=== PATIENT | female | born 1930 | race Caucasian/White ===

== ENCOUNTER 2018-02-12 18:17 | Inpatient (IN) | payer OTHER ==
[~2018-02-12] VITALS: Ht 144.7 cm; Wt 85.0 kg
--- NOTE | ~2018-02-12 | PR ---
[place], [place] PROGRESS NOTE NAME: JOSETTE VANN UNIT #: [id number] ROOM: 312 DOCTOR: CORINNE BAUER DO BIRTHDATE: [birth year] DOS: 02/16/2018 CHIEF COMPLAINT: Slept pretty good. SUMMARY OF VISIT: The patient was interviewed in the dining arriaza after she had completed in her breakfast. She engaged in a pleasant conversation and said that there are worse something on her tray that she could not eat. Her responses seemed to be simple and short. She denied having any issues or complaints and asked when she would be able to leave and go home. Mental status, she remains alert and oriented to self and place but not the time. Mood seems to be trending towards euthymia. Affect is more appropriate without signs of ryan or hypomania. No gross psychotic symptoms noted. Short-term memory remains poor. PLAN: We will continue to increase her Namenda to 10 mg b.i.d. to maximize potential benefits as her GFR is only mildly low. We will monitor with possible plans to increase her Exelon patch as needed to maximize its potential benefits. We will continue to engage patient in individual and group activities. We will plan to return to safe, to the least restrictive environment when psychiatrically stable. CORINNE BAUER DO JC CERVANTES MD CM:LUISITO [id number] CORINNE BAUER DO 02/18/18 1043 interface
--- NOTE | ~2018-02-12 | WRIGHTHP ---
[place], [place] PATIENT HISTORY AND PHYSICAL EXAM NAME: JOSETTE VANN UNIT #: [id number] ROOM: 312 DOCTOR: JC CERVANTES MD BIRTHDATE: [birth year] DOS: 02/12/2018 CHIEF COMPLAINT: "I don't know why I am here, I hope I get to go soon." HISTORY OF PRESENT ILLNESS: This is an 87-year-old white female who resides at [facility]. The patient has become increasingly more psychotic and paranoid. The patient believes that she sees small babies living in tents outside of her room at the [facility]. She has also been yelling out for her son who has been for some time. She has been increasingly more paranoid and delusional and believes that strings are hanging out of her nose and out of her ears. When attempted to be supported and redirection, she did escalate to the point of becoming verbally and physically threatening. She is admitted now to rule out any organic factors, to attempt to restabilize on medication, returning to the least restrictive environment when psychiatrically stable. PAST MEDICAL HISTORY: Remarkable for COPD, atrial fibrillation, dementia, depression, hyperlipidemia, hypertension, hypothyroidism, macular degeneration, obesity, osteopenia and venous insufficiency. MENTAL STATUS: The patient is alert and oriented to person, place and that she knows she is in the hospital, but not where and not to time. Mood does seem to be rather depressed and affect is constricted. She lacks significant spontaneity and her responses tended to be very short and simple. There was no agitation directed towards me. She is very confused, however, and could not tell me how long she has been here nor could she even remember what she just ate for breakfast. DIAGNOSES: Major depression, recurrent with psychotic features and Alzheimer's dementia. PLAN: I have already started her on Remeron 15 mg at bedtime along with Invega 3 mg in the morning. Given the fact that there is significant cognitive issues at play here, I will start Exelon patch 4.6 mg a day and Namenda 5 mg at bedtime. We will engage in individual and vega milieu activity, returning to the least restrictive environment when psychiatrically stable. [place], [place] PATIENT HISTORY AND PHYSICAL EXAM NAME: JOSETTE VANN UNIT #: [id number] ROOM: [facility] DOCTOR: JC CERVANTES MD BIRTHDATE: [birth year] JC CERVANTES MD CM:HISPHYS:PATIENT HISTORY AND PHYSICAL EXAMINATION [id number] JC CERVANTES MD 02/13/18 1552 interface
--- NOTE | ~2018-02-12 | DS ---
[place], [place] DISCHARGE SUMMARY [id number] UNIT #: [id number] ROOM: 312 DOCTOR: JC CERVANTES MD BIRTHDATE: [birth year] DOS: 02/19/2018 CHIEF COMPLAINT: "I don't know why I am here, I hope I get to go home soon." HISTORY OF PRESENT ILLNESS: This is an 87-year-old white female who resides at [facility] in [place], [place]. The patient had become increasingly more psychotic and paranoid there with significant verbal and physical agitation and aggression. The patient had reported that she was seeing things and saw small babies living in tents outside of her room. The patient had been yelling for her son who has been for some time. She has been increasingly more paranoid and delusional and believes that strings are hanging out of her nose and her ears when there is nothing there. Attempts to support and redirect her have only led to her escalating further and becoming even more verbally and physically aggressive. The patient is admitted now to rule out any organic factors to attempt to stabilize on medication, engaging in individual and vega milieu activity with the plan to return to the least restrictive environment when psychiatrically stable. PAST MEDICAL HISTORY: Remarkable for COPD, atrial fibrillation, dementia, depression, hyperlipidemia, hypertension, hypothyroidism, macular degeneration, obesity, osteopenia and venous insufficiency. SUMMARY OF HOSPITAL COURSE: The patient was admitted to the unit where she was started on Remeron 15 mg at bedtime as an antidepressant to aid sleep and improve appetite. Additionally to break the psychotic symptoms that she was experiencing, she was started on Invega 3 mg in the morning. Because there was significant cognitive impairment, she was started on both Exelon patch 4.6 mg a day and Namenda 5 mg a day. Both of these drugs were gradually increased to their maximum dose, so the Exelon was brought up from 4.6 mg daily to 9.5 mg daily and ultimately stabilized on 13.3 mg a day. Namenda was gradually titrated up from the 5 mg a day dose to 10 mg twice daily. With this combination of medications, the patient gradually improved. She became much more compliant and much more able to interact appropriately. She no longer was voicing the paranoia or the delusions and was no longer experiencing the visual hallucinations that were so prominent upon admission. The patient tolerated the medicines well and noticed that it did improve her sleep. She was not somnolent or sedate in any way during the day. There were no extrapyramidal symptoms, tardive dyskinesia or any other side effects. The patient had improved sufficiently with this combination of medications that she was able to return back to [facility] where I will follow her upon her return. FINAL DIAGNOSIS UPON DISCHARGE: Major depression, recurrent with psychotic features. PLAN: The patient will be discharged back to [facility]. All of her prescriptions have been printed and will be sent with her. I will follow her upon her return there. Medically and psychiatrically, she is stable. Her biopsychosocial needs will be met by the facility. [place], [place] DISCHARGE SUMMARY NAME: JOSETTE VANN UNIT #: [id number] ROOM: [facility] DOCTOR: JC CERVANTES MD BIRTHDATE: [birth year] JC CERVANTES MD CM:MARJORIE [phone] JC CERVANTES MD 02/19/18 2248 interface
--- NOTE | ~2018-02-12 | PR ---
[place], [place] PROGRESS NOTE NAME: JOSETTE VANN UNIT #: [id number] ROOM: 312 DOCTOR: JC CERVANTES MD BIRTHDATE: [birth year] DOS: 02/14/2018 CHIEF COMPLAINT: "I hope I get to go home soon." SUMMARY OF THE VISIT: The patient was interviewed as she sat in her room. She was sitting on the bed and engaged readily in conversation. She reports no problems, stating that she slept well, is eating well. She tended to minimize her issues. She could not tell me why she was here or how long she had been there. MENTAL STATUS: She remains alert and oriented to person, place, not necessarily time. Mood does seem to be starting to trend towards euthymia. Affect is more appropriate. There is no ryan or hypomania. There are no gross psychotic symptoms. Short term memory has gaps, otherwise she is fairly well intact. PLAN: I will increase Exelon patch and Namenda simultaneously, bringing Exelon patch from 4.6 to 9.5 mg a day and Namenda from 5 mg a day to 5 mg b.i.d., attempting to maximize potential benefits in improving and maintaining ADLs, behavior and cognition. We will engage in individual and vega milieu activity, returning to the least restrictive environment when psychiatrically stable. JC CERVANTES MD CM:PNTRANS [id number] JC CERVANTES MD 02/14/18 1327 interface
--- NOTE | ~2018-02-12 | EKG ---
[place], [place] ELECTROCARDIOGRAM REPORT NAME: JOSETTE VANN UNIT #: [id number] ROOM: 312 DOCTOR: JOSE FRANCISCO ANDREWS,MARILYN BIRTHDATE: [birth year] DOS: 02/12/2018 TIME: 1837 hours IMPRESSION: 1. Atrial fibrillation with controlled ventricular rate. 2. Nonspecific ST-T changes. 3. Normal QT interval. 4. Baseline artifacts. MARILYN FELTON MD CM:EKGRPT:ELECTROCARDIOGRAM REPORT [phone] MARILYN FELTON MD
--- NOTE | ~2018-02-12 | PR ---
[place], [place] PROGRESS NOTE NAME: JOSETTE VANN UNIT #: [id number] ROOM: 312 DOCTOR: JC CERVANTES MD BIRTHDATE: [birth year] DOS: 02/15/2018 CHIEF COMPLAINT: "Good morning, do I get to go home soon. Thank you for breakfast." SUMMARY OF THE VISIT: The patient was interviewed as she was completing her breakfast in the dining area. She had most of her breakfast eaten by the time I engaged her in conversation. She stopped and engaged in pleasant conversation with me. Most of her responses tended to be short and simple but to the point. She denied having any issues. She is not quite certain why she is here and was rather perplexed and bewildered by that. She was asking repeatedly when she would leave here and be able to go home. MENTAL STATUS: She remains alert and oriented to self, place, in that she knows she is in the hospital, but not to time. Mood does seem to be trending towards euthymia. Affect is more appropriate. There is no ryan or hypomania. There are no gross psychotic symptoms noted. Short term memory remains poor and she does at times process information very slowly. PLAN: I will go ahead and continue to increase her Namenda, bringing it from 5 mg twice a day to 10 mg in the morning and 5 mg at bedtime. Her GFR is only mildly low at 55, so I do believe she can handle this dose. I will plan to increase the Exelon patch next trying to maximize its potential benefits. Continue to engage in individual and vega milieu activity with the plan to return to the least restrictive environment when psychiatrically stable. JC CERVANTES MD CM:PNTRANS [id number] JC CERVANTES MD 02/15/18 1702 interface
--- NOTE | ~2018-02-12 | PR ---
[place], [place] PROGRESS NOTE NAME: JOSETTE VANN UNIT #: [id number] ROOM: 312 DOCTOR: CORINNE BAUER DO BIRTHDATE: [birth year] DOS: 02/18/2018 CHIEF COMPLAINT: "When am I getting out of here." SUMMARY OF VISIT: The patient was interviewed in the dining arriaza while she was eating her breakfast. Her responses seem to be simple and short. She denied having any issues or complaints, and she asked when she could leave or go home. Mood seems to be euthymic. Her affect is more appropriate. She does not have any signs of hypomania or ryan. No gross psychotic symptoms, visual or auditory hallucinations. Short-term memory remains poor. PLAN: We will continue her current medications at this time and monitor the patient. We will plan for discharge tomorrow as she continues her progress. We will continue to engage the patient in individual and group activities when she is psychiatrically stable and it is safe to return. CORINNE BAUER DO JC CERVANTES MD CM:PNFLOR [phone] CORINNE BAUER DO 02/25/18 0918 interface
--- NOTE | ~2018-02-12 | PR ---
[place], [place] PROGRESS NOTE NAME: JOSETTE VANN UNIT #: [id number] ROOM: 312 DOCTOR: CORINNE BAUER DO BIRTHDATE: [birth year] DOS: 02/17/2018 CHIEF COMPLAINT: "I do not want them seeing the meds that I am taking." SUMMARY OF VISIT: The patient was interviewed in the dining room while she was eating breakfast. She states that she is concerned about her medication and does not want the other patients in the facility to see her while she takes her meds. She was verified by staff and she was willing to take her medications in her room. She states that she is not a big eater, but she was eating well. States that she slept fine. She does complain of some left-sided back pain and states that it helps her when she gets up to walk. According to the staff, she is in groups, but she is not actively talking or participating; however, she has no behaviors or outburst. MENTAL STATUS: She remains alert and oriented to self, place. Mood seemed to be trending towards euthymia. Affect is more appropriate. There is no ryan or hypomania. No gross psychotic symptoms noted. Short-term memory remains poor and she does, at times, assess information very slowly. PLAN: We will increase her Exelon patch to 13.3 mg daily. We will continue her other medications at this time in order to maximize the potential benefits. Will continue to engage in individual and group activities with the plan to return to the least restrictive environment when psychiatrically stable. CORINNE BAUER, DO JC CERVANTES MD CM:PNFLOR [phone] CORINNE BAUER DO 02/18/18 1043 interface
[2018-02-12 18:17] VITALS: BP 104/62
[2018-02-12] MEDS ORDERED: VITAMIN B COMP1 EAC1 PO (18:22)
[2018-02-12] MEDS ORDERED: CRESTOR10 M1 PO (18:23)
[2018-02-12] MEDS ORDERED: LOSARTAN-HCTZ1 EACH PO (18:23)
[2018-02-12] MEDS ORDERED: MONTELUKAST SOD10 MG PO (18:23)
[2018-02-12] MEDS ORDERED: POTASSIUM CHLO20 ME3 PO (18:24)
[2018-02-12] MEDS ORDERED: OMEPRAZOLE40 MG PO (18:27)
[2018-02-12] MEDS ORDERED: FUROSEMIDE40 MG PO (18:28)
[2018-02-12] MEDS ORDERED: FEROSUL325 MG PO (18:32)
[2018-02-12] MEDS ORDERED: FLOVENT DISKUS50 MCG INH (18:33)
[2018-02-12] MEDS ORDERED: LEVOTHYROXINE50 MCG PO (18:33)
[2018-02-12] MEDS ORDERED: RIVASTIGMINE T4.5 M1 PO (18:34)
[2018-02-12] MEDS ORDERED: CALCIUM 500 +1 EAC3 PO (18:34)
[2018-02-12] MEDS ORDERED: NAPRELAN 500500 MG PO (18:34)
[2018-02-12] MEDS ORDERED: METOPROLOL SUCC50 M2 PO (18:36)
[2018-02-12] MEDS ORDERED: SYMB160 INH (18:36)
[2018-02-12] MEDS ORDERED: PULMICORT R1 MG/2 ML INH (18:38)
[2018-02-12] MEDS ORDERED: LORAZEPAM0.5 MG PO (18:38)
[2018-02-12] MEDS ORDERED: DILTIAZEM 24HR120 MG PO (18:39)
[2018-02-12] MEDS ORDERED: ELIQUIS5 M1 PO (18:39)
[2018-02-12] MEDS ORDERED: CYMBALTA60 MG PO (18:39)
[2018-02-12] MEDS ORDERED: SYSTANE 0.3-0.415 ML OP (18:40)
[2018-02-12] MEDS ORDERED: ULTRAM50 MG PO (18:41)
[2018-02-12] MEDS ORDERED: LOPERAMIDE HCL2 MG PO (18:41)
[2018-02-12] MEDS ORDERED: SALINE MIST 4545 ML NAS (18:41)
[2018-02-12] MEDS ORDERED: DUONEB 3 MG/3 ML3 M1 INH (18:42)
[2018-02-12] MEDS ORDERED: CLARITIN10 MG PO (18:43)
[2018-02-12] MEDS ORDERED: HYDROPHOR454 GM T (18:44)
[2018-02-12] MEDS ORDERED: KENALOG 0.1%80 GM T (18:45)
[2018-02-12 18:48] LABS: BASO % 0.4 % (0.0-1.0); EOS # 1.1 10*3/uL (0.0-0.4); EOS % 12.8 % (1.0-4.0); HEMOGLOBIN 12.4 g/dl (12.0-16.0); LYMPH # 1.2 10*3/uL (1.3-4.4); LYMPH % 14.4 % (27.0-41.0); MEAN CORPUSCULAR HGB CONC 32.6 g/dl (33.0-37.0); MEAN PLATELET VOLUME 10.5 fl (9.6-12.3); MONO # 0.6 10*3/uL (0.1-1.0); MONO % 7.4 % (3.0-9.0); NEUT # 5.3 10*3/uL (2.3-7.9); NEUT % 64.8 % (47.0-73.0); PLATELET COUNT AUTOMATED 291 10*3/uL (130-400); RED BLOOD COUNT 4.13 10*6/uL (4.10-5.10); WHITE BLOOD COUNT 8.2 10*3/uL (4.8-10.8)
[2018-02-12 19:06] LABS: ACETAMINOPHEN (TYLENOL) < 2.0 ug/ml (10-30); ALBUMIN 3.4 gm/dl (3.1-4.5); ALKALINE PHOSPHATASE 66 U/L (45-117); BUN 19 mg/dl (7-24); CHLORIDE 100 mmol/L (98-107); CREATININE 0.96 mg/dL (0.55-1.02); ETHYL ALCOHOL < 3.0 mg/dl (<3); SGOT/AST 19 IU/L (3-35); SGPT/ALT 20 U/L (12-78); SODIUM 141 mmol/L (136-145); TOTAL PROTEIN 6.6 gm/dL (6.4-8.2)
[2018-02-12 19:43] VITALS: BP 129/66
[2018-02-12] MEDS ORDERED: PROAIR HFA8.5 GM INH (23:45)
[2018-02-12] MEDS ORDERED: RISPERDAL0.5 MG PO (23:49)
[2018-02-13 00:05] VITALS: BP 111/57
[2018-02-13 00:08] VITALS: BP 111/57
[2018-02-13 07:11] LABS: CHOLESTEROL 133 mg/dL (<200); HDL CHOLESTEROL 44 mg/dl (40-60); LDL CHOLESTEROL 74 mg/dL (9-159); TRIGLYCERIDES 76 mg/dl (<150); VLDL CHOLESTEROL 15 mg/dL (6-40)
[2018-02-13 07:57] VITALS: BP 123/73
[2018-02-13 08:11] LABS: VITAMIN D, 25-HYDROXY 31.1 ng/mL (30-100)
[2018-02-13 10:32] LABS: BILIRUBIN NEGATIVE (NEGATIVE); BLOOD NEGATIVE (NEGATIVE); CLARITY SL CLOUDY (CLEAR); COLOR YELLOW (YELLOW); GLUCOSE NEGATIVE (NEGATIVE); KETONE NEGATIVE (NEGATIVE); LEUKO ESTERASE NEGATIVE (NEGATIVE); NITRITE NEGATIVE (NEGATIVE); SPECIFIC GRAVITY 1.015 (1.005-1.030); UROBILINOGEN 0.2 E.U./dl (0.2-1.0)
[2018-02-13 10:41] LABS: BACTERIA 2+; EPITHELIAL CELLS 30-40
[2018-02-13 20:00] VITALS: BP 141/76
[2018-02-14 03:27] LABS: URINE AMPHETAMINES < 1000 (1000ng/ml); URINE BARBITURATES < 200 (200ng/ml); URINE BENZODIAZEPINES < 200 (200ng/ml); URINE CANNABINOIDS (THC) < 50 (50ng/ml); URINE COCAINE < 300 (300ng/ml); URINE METHADONE < 300 (300ng/ml); URINE OPIATES < 300 (300ng/ml); URINE PHENCYCLIDINE < 25 (25ng/ml)
[2018-02-14 07:33] VITALS: BP 137/89
[2018-02-14 08:21] VITALS: BP 137/89
[2018-02-14 20:00] VITALS: BP 152/82
[2018-02-15 07:38] VITALS: BP 134/82
[2018-02-15 20:00] VITALS: BP 100/60
[2018-02-16 08:29] VITALS: BP 104/72
[2018-02-16 20:00] VITALS: BP 122/90
[2018-02-17 08:12] VITALS: BP 118/82
[2018-02-17 08:37] VITALS: BP 118/82
[2018-02-17 20:00] VITALS: BP 104/73
[2018-02-18 08:58] VITALS: BP 128/59
[2018-02-18 21:04] VITALS: BP 108/74
[2018-02-19 07:28] VITALS: BP 132/58
[2018-02-19] MEDS ORDERED: EXELON13.3 MG/21 T (09:31)
[2018-02-19] MEDS ORDERED: MEMANTINE HCL10 MG PO (09:31)
[2018-02-19] MEDS ORDERED: PALIPERIDONE ER3 MG PO (09:31)
[2018-02-19] MEDS ORDERED: MIRTAZAPINE15 M2 PO (09:31)
[2018-02-19] MEDS ORDERED: LEVAQUIN750 M1 PO (11:31)
[2018-02-19] MEDS ORDERED: VITAMIN D-32000 UNIT PO (11:31)
[2018-02-19] MEDS ORDERED: Nystatin 100,000 UNI PO (11:31)
[2018-02-19] MEDS ORDERED: DULE1ARO1 INH (12:15)
== END 2018-02-19 12:34 | disposition home or self-care (01) | DRG 56 ==
LOC: ED 18:17 → 3N 21:23
PROVIDERS: Physician Assistant; Psychiatry & Neurology Psychiatry
DX: G30.9 Alzheimer's disease, unspecified (principal); J18.1 Lobar pneumonia, unspecified organism; F33.3 Major depressive disorder, recurrent, severe with psychotic symptoms; J44.9 Chronic obstructive pulmonary disease, unspecified; F02.81 Dementia in other diseases classified elsewhere, unspecified severity, with behavioral disturbance; I48.2 Chronic atrial fibrillation; F23 Brief psychotic disorder; Z68.41 Body mass index [BMI] 40.0-44.9, adult; E03.9 Hypothyroidism, unspecified; Z66 Do not resuscitate; Z51.5 Encounter for palliative care; H35.30 Unspecified macular degeneration; E66.9 Obesity, unspecified; E78.5 Hyperlipidemia, unspecified; I10 Essential (primary) hypertension; M85.80 Other specified disorders of bone density and structure, unspecified site; I87.2 Venous insufficiency (chronic) (peripheral); R73.9 Hyperglycemia, unspecified; Z88.0 Allergy status to penicillin; Z88.2 Allergy status to sulfonamides; Z88.1 Allergy status to other antibiotic agents; Z88.8 Allergy status to other drugs, medicaments and biological substances; Z79.899 Other long term (current) drug therapy